=== PATIENT | female | born 1985 | race Caucasian/White ===

== ENCOUNTER 2016-07-21 10:42 | Outpatient (CLI) | payer SELFPAY | END 2016-07-21 11:28 | disposition home or self-care (01) | LOC: LDOP 10:42 | PROVIDERS: ATTEND Obstetrics & Gynecology | DX: O26.893 Other specified pregnancy related conditions, third trimester (principal); R42 Dizziness and giddiness; R11.0 Nausea; Z3A.29 29 weeks gestation of pregnancy | CPT/HCPCS: 59020; 59025; 99201; G0463 ==

== ENCOUNTER 2016-09-07 18:49 | Outpatient (CLI) | payer OTHER | END 2016-09-07 19:30 | disposition home or self-care (01) | LOC: LDOP 18:49 | PROVIDERS: ATTEND Obstetrics & Gynecology | DX: O36.8130 Decreased fetal movements, third trimester, not applicable or unspecified (principal); O99.213 Obesity complicating pregnancy, third trimester; Z3A.36 36 weeks gestation of pregnancy | CPT/HCPCS: 59025; 99211; G0463 ==

== ENCOUNTER 2016-10-03 10:59 | Inpatient (IN) | payer OTHER ==
[~2016-10-03] VITALS: Ht 157.5 cm; Wt 95.0 kg
[2016-10-15] MEDS ORDERED: OXYTOCIN 30U/ 0.9% NaCL 500ML 500 ML IV ONE (08:22)
[2016-10-15] MEDS ORDERED: OXYTOCIN 30U/ 0.9% NaCL 500ML 500 ML IV PRN (08:22)
[2016-10-15] MEDS ORDERED: FENTANYL PF 100 MCG/2ML IV PRN (08:30)
[2016-10-15] MEDS ORDERED: ONDANSETRON 2MG/ML, 2ML IVPush PRN (08:30)
[2016-10-15] MEDS ORDERED: CALCIUM CARBONATE 500 MG TAB.CHEW PO PRN (08:30)
[2016-10-15] MEDS ORDERED: FENTANYL PF 100 MCG/2ML IVPush PRN (08:30)
[2016-10-15] MEDS ORDERED: TERBUTALINE 1 MG/ML, 1ML IVPush PRN ×2 (08:30)
[2016-10-15] MEDS ORDERED: MISOPROSTOL 25 MCG TABLET VG PRN (08:30)
[2016-10-15] MEDS ORDERED: NEWBORN KIT ONE (08:34)
[2016-10-15] MEDS ORDERED: LIDOCAINE 1%, 20ML ONE (08:34)
[2016-10-15] MEDS ORDERED: MISOPROSTOL 25 MCG TABLET ONE (08:34)
[2016-10-15] MEDS ORDERED: OXYTOCIN 30U/ 0.9% NaCL 500ML 500 ML ONE (08:34)
[2016-10-15] MEDS ORDERED: MISOPROSTOL 200 MCG TABLET ONE (08:34)
[2016-10-15] MEDS ORDERED: PLEASE ENTER HEIGHT AND WEIGHT MC SCH (09:00)
[2016-10-15] MEDS ORDERED: ACETAMINOPHEN 325 MG TABLET ONE (13:45)
[2016-10-15] MEDS: LACTATED RINGERS 1,000 ML IV SCH ×4 (13:50→19:58)
[2016-10-15] MEDS ORDERED: ACETAMINOPHEN 325 MG TABLET PO PRN (14:00)
[2016-10-15] MEDS ORDERED: FENTANYL/BUPIV./NS/PF 250 ML EPIDCONT ONE (19:23)
[2016-10-15] MEDS ORDERED: LIDOCAINE/PF 1.5%-EPI 1:200K, 30ML ONE (19:23)
[2016-10-15] MEDS ORDERED: EPHEDRINE 50 MG/ML, 1ML ONE (19:25)
[2016-10-15] MEDS ORDERED: FENTANYL/BUPIV./NS/PF 250 ML EPIDCONT SCH (19:58)
[2016-10-15] MEDS ORDERED: LACTATED RINGERS 1,000 ML IVBOLUS PRN (20:00)
[2016-10-15] MEDS ORDERED: EPHEDRINE 50 MG/ML, 1ML IVPush PRN (20:00)
[2016-10-15] MEDS ORDERED: NALOXONE 0.4 MG/ML, 1ML IVPush PRN (20:00)
[2016-10-16] MEDS: LACTATED RINGERS 1,000 ML IV SCH ×4 (04:03→20:28)
[2016-10-16 10:20] VITALS: BP 112/57
[2016-10-16] MEDS ORDERED: D5%-LACTATED RINGERS 1,000 ML IV SCH (10:39)
[2016-10-16 10:47] VITALS: BP 110/57
[2016-10-16 11:58] VITALS: BP 115/64
[2016-10-16] MEDS ORDERED: FENTANYL/BUPIV./NS/PF 250 ML EPIDCONT ONE (15:51)
[2016-10-16] MEDS ORDERED: LIDOCAINE/MPF 2%-EPI 1:200K, 20 ML ONE (16:22)
[2016-10-16] MEDS: KETOROLAC 30 MG/1 ML IV SCH (17:00)
[2016-10-16] MEDS ORDERED: CALCIUM CARBONATE 500 MG TAB.CHEW PO PRN (17:00)
[2016-10-16] MEDS ORDERED: METOCLOPRAMIDE 5 MG/ML, 2ML IV PRN (17:00)
[2016-10-16] MEDS ORDERED: ONDANSETRON 2MG/ML, 2ML IV PRN (17:00)
[2016-10-16] MEDS ORDERED: ACETAMINOPHEN 325 MG TABLET PO PRN (17:00)
[2016-10-16] MEDS ORDERED: IBUPROFEN 600 MG TABLET PO PRN (17:00)
[2016-10-16] MEDS ORDERED: METOCLOPRAMIDE 5 MG/ML, 2ML ONE (17:16)
[2016-10-16] MEDS ORDERED: SODIUM CITRATE/CITRIC ACID 30 ML UDC ONE (17:16)
[2016-10-16] MEDS ORDERED: SODIUM CITRATE/CITRIC ACID 30 ML UDC PO ONE (17:30)
[2016-10-16] MEDS ORDERED: OXYTOCIN 10 UNITS/ML, 1ML ONE (18:21)
[2016-10-16] MEDS ORDERED: KETOROLAC 30 MG/1 ML ONE (18:21)
[2016-10-16] MEDS ORDERED: CEFAZOLIN 1,000 MG ONE (18:21)
[2016-10-16] MEDS ORDERED: MEPERIDINE/PF 25MG/0.5ML IVPush PRN (20:00)
[2016-10-16] MEDS ORDERED: morphine SULFATE 10 MG/ML, 1ML IV PRN (20:00)
[2016-10-16] MEDS ORDERED: FENTANYL PF 100 MCG/2ML IV PRN (20:00)
[2016-10-16] MEDS ORDERED: OXYcodone 5 MG/5 ML ORAL.SOL UDC PO PRN (20:00)
[2016-10-16] MEDS ORDERED: ONDANSETRON 2MG/ML, 2ML IVPush PRN (20:00)
[2016-10-16] MEDS ORDERED: LABETALOL 5MG/ML, 20ML IV PRN (20:00)
[2016-10-16] MEDS: OXYTOCIN 30U/ 0.9% NaCL 500ML 500 ML IV SCH (20:29)
[2016-10-16 21:15] VITALS: BP 115/75
[2016-10-16] MEDS: OXYcodone/APAP 5/325MG TABLET PO PRN (22:03)
[2016-10-16] MEDS: OXYcodone IR 5MG TABLET PO PRN (23:15)
[2016-10-17] MEDS: LACTATED RINGERS 1,000 ML IV SCH ×2 (00:33→02:33)
[2016-10-17 00:45] VITALS: BP 139/81
[2016-10-17] MEDS: KETOROLAC 30 MG/1 ML IV SCH ×4 (01:37→21:01)
[2016-10-17] MEDS: OXYTOCIN 30U/ 0.9% NaCL 500ML 500 ML IV SCH (02:33)
[2016-10-17] MEDS: OXYcodone/APAP 5/325MG TABLET PO PRN ×3 (03:44→13:06)
[2016-10-17 04:22] VITALS: BP 116/59
[2016-10-17] MEDS: OXYcodone IR 5MG TABLET PO PRN ×4 (05:39→21:01)
[2016-10-17 07:35] VITALS: BP 118/76
[2016-10-17] MEDS: DOCUSATE 100 MG CAPSULE PO PRN ×2 (08:51→21:01)
[2016-10-17] MEDS: PRENATAL VIT/IRON/FA 1 EACH TABLET PO SCH (08:51)
[2016-10-17 13:55] VITALS: BP 112/71
[2016-10-17 20:40] VITALS: BP 123/80
[2016-10-18] MEDS: OXYcodone IR 5MG TABLET PO PRN ×6 (01:13→21:33)
[2016-10-18] MEDS: KETOROLAC 30 MG/1 ML IV SCH ×3 (03:35→14:54)
[2016-10-18 08:03] VITALS: BP 131/85
[2016-10-18] MEDS: PRENATAL VIT/IRON/FA 1 EACH TABLET PO SCH (08:34)
[2016-10-18] MEDS: DOCUSATE 100 MG CAPSULE PO PRN ×2 (08:34→21:33)
[2016-10-18 20:30] VITALS: BP 124/82
[2016-10-18] MEDS: IBUPROFEN 600 MG TABLET PO PRN (21:33)
[2016-10-19] MEDS: OXYcodone IR 5MG TABLET PO PRN ×4 (01:40→13:58)
[2016-10-19] MEDS: IBUPROFEN 600 MG TABLET PO PRN ×2 (03:39→09:42)
[2016-10-19 06:45] VITALS: BP 130/84
[2016-10-19] MEDS: DOCUSATE 100 MG CAPSULE PO PRN (09:42)
[2016-10-19] MEDS: PRENATAL VIT/IRON/FA 1 EACH TABLET PO SCH (09:42)
[2016-10-19] MEDS ORDERED: OXYC-302 PO (09:51)
[2016-10-19] MEDS ORDERED: DOCU-30 PO (09:52)
[2016-10-19] MEDS ORDERED: IBUP-1222 PO (09:52)
== END 2016-10-19 15:00 | disposition home or self-care (01) | DRG 765 ==
LOC: LDIP 10-15 07:47 → 2NW 10-16 21:55
PROVIDERS: ADMIT Obstetrics & Gynecology; ATTEND Obstetrics & Gynecology
PROC: 0U7C7ZZ Dilation of Cervix, Via Natural or Artificial Opening (ICD-10-PCS; 2016-10-15)
PROC: 3E0P7GC Introduction of Other Therapeutic Substance into Female Reproductive, Via Natural or Artificial Opening (ICD-10-PCS; 2016-10-15)
PROC: 10D00Z1 Extraction of Products of Conception, Low, Open Approach (ICD-10-PCS; principal; 2016-10-16)
DX: O48.0 Post-term pregnancy (principal); O99.354 Diseases of the nervous system complicating childbirth; O62.2 Other uterine inertia; O99.02 Anemia complicating childbirth; O36.63X0 Maternal care for excessive fetal growth, third trimester, not applicable or unspecified; D64.9 Anemia, unspecified; E28.2 Polycystic ovarian syndrome; O99.810 Abnormal glucose complicating pregnancy; G43.909 Migraine, unspecified, not intractable, without status migrainosus; O76 Abnormality in fetal heart rate and rhythm complicating labor and delivery; O77.0 Labor and delivery complicated by meconium in amniotic fluid; O61.0 Failed medical induction of labor; O66.5 Attempted application of vacuum extractor and forceps; Z37.0 Single live birth; Z3A.41 41 weeks gestation of pregnancy; Z90.89 Acquired absence of other organs; Z88.0 Allergy status to penicillin
CPT/HCPCS: 36415; 85025; 86850; 86900; J0690; J1885; J3490; J2590; J2765; J3010; J7120; J7121